=== PATIENT | male | born 1990 | race Caucasian/White ===

== ENCOUNTER 2017-03-12 09:39 | Inpatient (IN) | payer SELFPAY ==
--- NOTE | ~2017-03-12 | HP ---
History And Physical [address] [place]. [address] NAME: MELISSA REEVES : [birth year] STATUS : ADM IN [facility]#: [id number] AGE: 27 ADM/REG DATE : 03/12/17 MR#: [id number] REPORT SERV DATE: 03/12/17 DICTATED BY: RAJI RUBIO DATE: 03/12/17 REPORT STATUS : Draft TRANSCRIBED BY: MODJacinta DATE: 03/12/17 DATE OF ADMISSION: 03/12/2017 CHIEF COMPLAINT: Cough. HISTORY OF PRESENT ILLNESS: The patient is a 27-year-old white male with an unfortunate diagnosis of cystic fibrosis since , now presented to Dr. Galeano's office with persistent cough of green sputum production. No fevers or chills. So, he has been referred to the Hospitalist Service for further treatment and evaluation. When I talked to the patient, the patient reported having some soreness in his back due to mainly coughing. His cough is productive of green sputum. He denies any fevers or chills. He has not had any chest pain. He denied any shortness of breath. He said, he has been taking his Zithromax for his prophylaxis, but has run out of his Pulmozyme for the last two and half weeks. He denied any nausea, vomiting, abdominal pain, fever, chills. He has not had any diarrhea or any other constitutional symptoms. REVIEW OF SYSTEMS: 14-point review of systems otherwise negative. PAST MEDICAL HISTORY: Significant for cystic fibrosis, history of alcohol abuse, none since last fall, depression with anxiety, allergic rhinitis, hepatitis mostly alcohol related. He also has history of hepatitis C, HSV, chronic constipation. PAST SURGICAL HISTORY: Significant for bowel resection due to intussusception in 08/2016. ALLERGIES: TO PREDNISONE. CURRENT MEDICATIONS: Acyclovir, Pulmozyme, Zenpep, azithromycin. SOCIAL HISTORY: He is , lives with a brother, currently employed, does not smoke, rarely uses of alcohol now. No use of any illicit substance abuse. He has a history of marijuana use in the past. FAMILY HISTORY: Mother with cirrhosis and substance abuse, CVA. Father, unknown. PHYSICAL EXAMINATION: GENERAL: White male, sitting on the bed, appears to be in no obvious respiratory distress. He is awake, alert, he is oriented. VITAL SIGNS: Blood pressure 122/73, heart rate of 92, temp is 98.8, pulse ox of 95% on room air. HEENT: Head is normocephalic, atraumatic. Pupils are equal, round, and reactive to light. Extraocular muscles are intact. Sclerae anicteric. Conjunctivae are normal. Oropharynx without lesion. Tongue protrusion midline. Uvula midline. NECK: Supple. No evidence of jugular venous distention. No carotid bruits or thyromegaly is appreciated. No lymphadenopathy in the neck is palpable. HEART: Mildly tachycardic. No murmurs, rubs, or gallops. PMI nondisplaced. History And Physical [address] [address] NAME: MELISSA REEVES : [birth year] STATUS : ADM IN [facility]#: [id number] AGE: 27 ADM/REG DATE : 03/12/17 MR#: [id number] REPORT SERV DATE: 03/12/17 DICTATED BY: RAJI RUBIO. DATE: 03/12/17 REPORT STATUS : Draft TRANSCRIBED BY: SURI DATE: 03/12/17 LUNGS: Fairly clear to auscultation both anteriorly and posteriorly with maybe a few rhonchi with expiration. ABDOMEN: Scaphoid, soft, nontender, good bowel sounds. No rebound or guarding. No organomegaly. EXTREMITIES: Without cyanosis, clubbing, or edema. NEUROLOGICAL: Seems to be grossly intact. LABORATORIES: No labs are available at this time. IMPRESSION: 1. Acute exacerbation of cystic fibrosis. 2. Anxiety. 3. Hepatitis C. PLAN: The patient will be admitted. Pulmozyme will be initiated. Aggressive DuoNebs will be given. IV antibiotics will be given. We will obtain sputum and blood cultures. We will address home medications when available. The patient remains a full code. AAYUSH/SURI Raji Rubio M.D. / [id number] CC: Shankar Gaston M.D.
--- NOTE | ~2017-03-12 | DS ---
Discharge Summary [facility] [address] [place]. [address] NAME: MELISSA REEVES : [birth year] STATUS : ADM IN [facility]#: [id number] AGE: 27 ADM/REG DATE : 03/12/17 MR#: [id number] REPORT SERV DATE: 03/14/17 DICTATED BY: RAJI RUBIO DATE: 03/14/17 REPORT STATUS : Draft TRANSCRIBED BY: MODL DATE: 03/14/17 ADMISSION DATE: 03/12/2017 DISCHARGE DATE: 03/14/2017 DISCHARGE DIAGNOSES: 1. Acute exacerbation of cystic fibrosis. 2. Anxiety. 3. Transaminitis, most likely due to cystic fibrosis. CONSULTANTS DURING THIS HOSPITALIZATION: None. INVASIVE PROCEDURES DONE DURING THIS HOSPITALIZATION: None. BRIEF HISTORY OF PRESENT ILLNESS: The patient is a 27-year-old white male suffering from cystic fibrosis. Apparently, he had run out of his Pulmozyme and was doing poorly. So he was referred to the hospital for further treatment and evaluation. For detailed history and physical exam, please see my note dictated on 03/12/2017. HOSPITAL COURSE: After being admitted to the hospital, this patient was given IV fluids. Broad-spectrum IV antibiotics to cover Pseudomonas as well as other pulmonary pathogens. Blood cultures were done which remained negative. Sputum culture was of poor quality. Within 48 hours, this patient's cough had abated. His secretion production had significantly improved. So, at that time, it was decided that we could switch him to oral antibiotics, resume his other medications, and discharge him home to recover in the home setting and outpatient followup. DISCHARGE DISPOSITION: Home. DISCHARGE ACTIVITY: As tolerated. DISCHARGE DIET: Regular. DISCHARGE MEDICATIONS: Colace 100 mg once daily; Zenpep 100,000 units with meals 3 times daily; azithromycin 500 mg Wednesday, Wednesday, and Wednesday, to resume therapy after finishing the initial course of antibiotics; MiraLax one packet p.o. daily; Pulmozyme 1 mg inhalation once daily; vitamin A; vitamin D; vitamin E; vitamin K; and [place] 10/325 one tablet p.o. every six hours p.r.n. for pain; albuterol HFA 2 puffs four times daily. DISCHARGE FOLLOWUP: With Dr. Sheyla Galeano in one week postdischarge. More than 30 minutes spent planning this patient's discharge, reconciling medications, writing prescriptions, discussing hospital care, and followup with the patient and documenting this discharge. Discharge Summary [address] [place] [address] NAME: MELISSA REEVES : [birth year] STATUS : ADM IN [facility]#: [id number] AGE: 27 ADM/REG DATE : 03/12/17 MR#: [id number] REPORT SERV DATE: 03/14/17 DICTATED BY: RAJI RUBIO DATE: 03/14/17 REPORT STATUS : Draft TRANSCRIBED BY: SURI DATE: 03/14/17 SV/SURI Raji Rubio M.D. / [id number] CC: Shankar Gaston M.D.
[~2017-03-12 09:39] MED LIST: DSS PO; MIRALAX POWDER1 PKT PO; NORCO1 TAB PO; P20 PO; PULMOZYME IN; PULMOZYME INH; VITAMIN A PO; VITAMIN D PO; VITAMIN E PO; VITAMIN K PO; ZITHROMAX500 MG PO; ZOVIRAX400 MG PO; [UNRECOGNIZED DRUG - CODE] PO
[2017-03-12 13:20] LABS: BASOPHILS 0.3 %; BASOPHILS ABSOLUTE 0.03 10/3/uL (0.0-0.16); EOSINOPHILS 2.4 %; EOSINOPHILS ABSOLUTE 0.25 10/3/uL (0.0-0.53); HEMATOCRIT 38.8 % (40.0-51.0); HEMOGLOBIN 13.7 g/dL (13.6-17.8); IMMATURE GRANULOCYTES 0.1 %; IMMATURE GRANULOCYTES ABSOLUTE 0.01 10/3/uL (0.0-0.11); LYMPHOCYTES 18.1 %; LYMPHOCYTES ABSOLUTE 1.85 10/3/uL (0.67-4.30); MANUAL DIFF NO %; MEAN CORPUS HGB CONC 35.3 g/dL (32.0-36.0); MEAN CORPUSCULAR HEMOGLOB 31.1 pg (26.0-34.0); MEAN CORPUSCULAR VOLUME 88.2 fL (80-100); MEAN PLATELET VOLUME 10.5 fL (9.2-13.0); MONOCYTES 6.1 %; MONOCYTES ABSOLUTE 0.62 10/3/uL (0.21-1.20); NEUTROPHILS ABSOLUTE 7.46 10/3/uL (2.02-8.40); PLATELET COUNT 229 10/3/uL (150-400); WHITE BLOOD CELLS 10.2 10/3/uL (4.5-10.5)
[2017-03-12 13:40] LABS: ALBUMIN 3.3 G/DL (3.5-5.0); BUN (BLOOD UREA NITROGEN) 10 MG/DL (6-23); CALCIUM, SERUM 8.9 MG/DL (8.5-10.4); CHLORIDE, SERUM 102 MMOL/L (96-112); CO2 (CARBON DIOXIDE) 27 MMOL/L (24-34); CREATININE 0.59 MG/DL (0.70-1.30); GFR AFRICAN AMERICAN 162 ML/MIN (>=60); GFR NON AFRICAN AMERICAN 140 ML/MIN (>=60); GLUCOSE, SERUM 87 MG/DL (60-99); POTASSIUM, SERUM 3.9 MMOL/L (3.5-5.3); SGOT(AST) 70 U/L (5-40); SGPT(ALT) 87 U/L (5-65); SODIUM, SERUM 137 MMOL/L (135-148); TOTAL PROTEIN 8.4 G/DL (6.0-8.5)
[2017-03-12 13:42] LABS: A/G RATIO 0.6 (0.7-1.9); ALKALINE PHOSPHATASE 752 U/L (45-117); GLOBULIN 5.1 G/DL (2.5-4.1)
[2017-03-12 13:57] LABS: PROCALCITONIN 0.27 ng/mL (<0.5)
[2017-03-13 04:44] LABS: BASOPHILS 0.5 %; BASOPHILS ABSOLUTE 0.03 10/3/uL (0.0-0.16); EOSINOPHILS 4.9 %; EOSINOPHILS ABSOLUTE 0.31 10/3/uL (0.0-0.53); HEMOGLOBIN 12.4 g/dL (13.6-17.8); IMMATURE GRANULOCYTES 0.2 %; IMMATURE GRANULOCYTES ABSOLUTE 0.01 10/3/uL (0.0-0.11); LYMPHOCYTES 22.6 %; LYMPHOCYTES ABSOLUTE 1.44 10/3/uL (0.67-4.30); MEAN CORPUS HGB CONC 34.4 g/dL (32.0-36.0); MEAN CORPUSCULAR HEMOGLOB 30.9 pg (26.0-34.0); MEAN CORPUSCULAR VOLUME 89.8 fL (80-100); MEAN PLATELET VOLUME 10.2 fL (9.2-13.0); MONOCYTES 7.5 %; MONOCYTES ABSOLUTE 0.48 10/3/uL (0.21-1.20); NEUTROPHILS 64.3 %; NEUTROPHILS ABSOLUTE 4.09 10/3/uL (2.02-8.40); PLATELET COUNT 205 10/3/uL (150-400); RBC DISTRIBUTION WIDTH 13.2 % (12.0-16.0); RED CELL COUNT 4.01 10/6/uL (4.7-6.1); WHITE BLOOD CELLS 6.4 10/3/uL (4.5-10.5)
[2017-03-13 04:45] LABS: MANUAL DIFF NO %
[2017-03-13 04:56] LABS: ALBUMIN 2.5 G/DL (3.5-5.0); BUN (BLOOD UREA NITROGEN) 9 MG/DL (6-23); CALCIUM, SERUM 8.3 MG/DL (8.5-10.4); CHLORIDE, SERUM 105 MMOL/L (96-112); CO2 (CARBON DIOXIDE) 23 MMOL/L (24-34); CREATININE 0.68 MG/DL (0.70-1.30); GFR AFRICAN AMERICAN 153 ML/MIN (>=60); GFR NON AFRICAN AMERICAN 132 ML/MIN (>=60); GLUCOSE, SERUM 89 MG/DL (60-99); PHOSPHORUS, SERUM 3.8 MG/DL (2.5-4.5); POTASSIUM, SERUM 4.2 MMOL/L (3.5-5.3); SODIUM, SERUM 140 MMOL/L (135-148)
[2017-03-14 06:42] LABS: BASOPHILS 0.4 %; BASOPHILS ABSOLUTE 0.03 10/3/uL (0.0-0.16); EOSINOPHILS 6.4 %; EOSINOPHILS ABSOLUTE 0.48 10/3/uL (0.0-0.53); HEMATOCRIT 40.2 % (40.0-51.0); HEMOGLOBIN 13.7 g/dL (13.6-17.8); IMMATURE GRANULOCYTES 0.3 %; IMMATURE GRANULOCYTES ABSOLUTE 0.02 10/3/uL (0.0-0.11); LYMPHOCYTES 21.8 %; LYMPHOCYTES ABSOLUTE 1.64 10/3/uL (0.67-4.30); MANUAL DIFF NO %; MEAN CORPUS HGB CONC 34.1 g/dL (32.0-36.0); MEAN CORPUSCULAR HEMOGLOB 31.1 pg (26.0-34.0); MEAN CORPUSCULAR VOLUME 91.4 fL (80-100); MEAN PLATELET VOLUME 10.6 fL (9.2-13.0); MONOCYTES 6.7 %; NEUTROPHILS 64.4 %; NEUTROPHILS ABSOLUTE 4.84 10/3/uL (2.02-8.40); PLATELET COUNT 218 10/3/uL (150-400); WHITE BLOOD CELLS 7.5 10/3/uL (4.5-10.5)
[2017-03-14 07:00] LABS: A/G RATIO 0.6 (0.7-1.9); ALBUMIN 2.9 G/DL (3.5-5.0); BUN (BLOOD UREA NITROGEN) 12 MG/DL (6-23); CALCIUM, SERUM 8.7 MG/DL (8.5-10.4); CHLORIDE, SERUM 106 MMOL/L (96-112); CO2 (CARBON DIOXIDE) 25 MMOL/L (24-34); CREATININE 0.76 MG/DL (0.70-1.30); GFR AFRICAN AMERICAN 146 ML/MIN (>=60); GFR NON AFRICAN AMERICAN 126 ML/MIN (>=60); GLOBULIN 4.6 G/DL (2.5-4.1); GLUCOSE, SERUM 88 MG/DL (60-99); POTASSIUM, SERUM 4.2 MMOL/L (3.5-5.3); SGOT(AST) 79 U/L (5-40); SGPT(ALT) 83 U/L (5-65); SODIUM, SERUM 141 MMOL/L (135-148); TOTAL BILIRUBIN 0.9 MG/DL (0-1.2); TOTAL PROTEIN 7.5 G/DL (6.0-8.5)
[2017-03-14 07:01] LABS: ALKALINE PHOSPHATASE 662 U/L (45-117)
[2017-03-14] MEDS ORDERED: VENTOLIN HFA INH (09:32)
[2017-03-14] MEDS ORDERED: LEVAQUIN750 MG PO (09:32)
[2017-03-14] MEDS ORDERED: ZITH250 PO (09:34)
== END 2017-03-14 10:35 | disposition home or self-care (01) | DRG 179 ==
LOC: 4SO 09:39
PROVIDERS: Internal Medicine
DX: E84.0 Cystic fibrosis with pulmonary manifestations (principal); B00.9 Herpesviral infection, unspecified; T48.4X6A Underdosing of expectorants, initial encounter; Z91.138 Patient's unintentional underdosing of medication regimen for other reason; F12.21 Cannabis dependence, in remission; Z88.8 Allergy status to other drugs, medicaments and biological substances; Z86.19 Personal history of other infectious and parasitic diseases; J45.909 Unspecified asthma, uncomplicated; F41.8 Other specified anxiety disorders; F10.10 Alcohol abuse, uncomplicated; Z86.59 Personal history of other mental and behavioral disorders; Z86.11 Personal history of tuberculosis
CPT/HCPCS: 71020; 80053; 80069; 83605; 84145; 84443; 85025; 87040; 87205; 94640; A9270-GY; J2543